=== PATIENT | male | born 1965 | race Caucasian/White ===

== ENCOUNTER 2016-04-03 07:34 | Emergency (ER) | payer BC ==
[2016-04-03] MEDS ORDERED: diphenhydrAMINE INJ 50MG/ML VIAL (J1200) As Ordered ONE (07:51)
[2016-04-03] MEDS ORDERED: METOCLOPRAMIDE INJ 10MG/2ML VIAL (J2765) As Ordered ONE (07:51)
[2016-04-03] MEDS ORDERED: ONDANSETRON 4MG/2ML VIAL (J2405) As Ordered ONE (07:58)
[2016-04-03 08:00] LABS: BASO % 0.4 % (0.0-1.0); EOS # 0.2 K/mm3 (0.0-0.50); EOS % 2.1 % (0.0-3.0); LARGE UNSTAINED CELL # 0.3 K/mm3 (0.0-0.4); LARGE UNSTAINED CELL % 3.5 % (0.0-4.0); LYMPH # 1.7 K/mm3 (1.5-4.5); LYMPH % 23.6 % (24.0-44.0); MEAN CORPUSCULAR HEMOGLOBIN 31.3 pg (27.0-33.0); MEAN CORPUSCULAR HGB CONC 34.9 g/dl (32.0-36.5); MEAN CORPUSCULAR VOLUME 89.7 fl (80.0-96.0); MONO # 0.4 K/mm3 (0.0-0.8); MONO % 5.4 % (0.0-5.0); NEUTROPHILS # 4.6 K/mm3 (1.8-7.7); NEUTROPHILS % 65.1 % (36.0-66.0); PLATELET COUNT, AUTOMATED 277 k/mm3 (150-450); RED CELL DISTRIBUTION WIDTH 12.8 % (11.5-14.5); WHITE BLOOD COUNT 7.1 K/mm3 (4.0-10.0)
[2016-04-03 08:21] LABS: ANION GAP 8 MEQ/L (8-16); BLOOD UREA NITROGEN 15 MG/DL (7-18); CALCIUM LEVEL 8.7 MG/DL (8.5-10.1); CARBON DIOXIDE LEVEL 31 MEQ/L (21-32); CHLORIDE LEVEL 104 MEQ/L (98-107); CREATININE FOR GFR 0.85 MG/DL (0.70-1.30); GLOMERULAR FILTRATION RATE > 60.0 (>56); GLUCOSE, FASTING 140 MG/DL (70-105); POTASSIUM SERUM 3.5 MEQ/L (3.5-5.1); SODIUM LEVEL 143 MEQ/L (136-145)
--- NOTE | 2016-04-03 08:27 | REP ---
CT brain without contrast 04/03/2016 Indication: Headache and vomiting Ventricles are of normal size and configuration. There is no intracranial hemorrhage or extra-axial fluid collection. There is no midline shift or mass effect. The skull is without fracture. Probable skin tag noted within the left frontal scalp. Visualized portions of paranasal sinuses and mastoid sinuses are clear Impression: no acute intracranial pathology or hemorrhage Signed by Jenni Brink MD 04/03/2016 08:18 A
[2016-04-03] MEDS ORDERED: MORPHINE 4 MG/ML 1ML SYRINGE As Ordered ONE (09:00)
--- NOTE | 2016-04-03 12:03 | REP ---
MRA BRAIN WITHOUT CONTRAST: HISTORY: Headache. 3D [id number] MR angiography was performed at the level of the [place]. There is no aneurysm, arteriovenous malformation or atherosclerotic lesion. The major intracranial vessels are patent. The left vertebral artery is dominant. IMPRESSION: Normal MRA brain. Signed by Severo Alex MD 04/03/2016 12:06 P
--- NOTE | 2016-04-03 13:10 | EDDOCDS ---
Physician Documentation [facility] Name: Brandon Lr Age: 50 yrs Sex: Male : 1965 Arrival Date: 04/03/2016 Time: 07:34 Bed 5 Private MD: Disposition: 04/03/16 12:58 Discharged to Home/Self Care. Impression: Headache. - Condition is Stable. - Discharge Instructions: Migraine Headache, Migraine Headache, Jljv-[id number], General Headache Without Cause, Wxoo-[id number]. - Medication Reconciliation, Local Pharmacy Hours form. - Follow up: Mireille Bar; When: Call to arrange an appointment. - Problem is an acute exacerbation. - Symptoms have improved. Historical: - Allergies: PENICILLINS (Hives); - Home Meds: 1. Prilosec 20 mg Oral cpDR 1 cap once daily (Last dose: 04/03/2016 06:00) 2. multivitamin Oral tab 1 tablet daily (Last dose: 04/03/2016 06:00) - PMHx: GERD; - PSHx: Back Surgery; Testicular Biopsy; - Social history: No barriers to communication noted, The patient speaks fluent Kyrgyz, Smoking status: Patient states was never smoker of tobacco. - Family history: Not pertinent. - : The pt / caregiver states he / she is not on anticoagulants. Home medication list is obtained from. - Exposure Risk Screening:: None identified. Vital Signs: 04/03 07:46 BP 179 / 107; Pulse 66; Resp 20; Temp 96.0; Pulse Ox 96% ; jlf 07:59 Pulse 88 MON; Pulse Ox 98% ; pml 07:59 BP 184 / 104 (auto/); pml 08:14 Pulse 62 MON; Pulse Ox 93% ; pml 08:14 BP 152 / 91 (auto/); pml 08:29 Pulse 64 MON; Pulse Ox 98% ; pml 08:29 BP 167 / 101 (auto/); pml 08:44 Pulse 64 MON; Pulse Ox 99% ; pml 08:44 BP 175 / 104 (auto/); pml 08:59 Pulse 58 MON; Pulse Ox 99% ; pml 08:59 BP 159 / 97 (auto/); pml 09:14 Pulse 56 MON; Pulse Ox 94% ; pml 09:14 BP 156 / 93 (auto/); pml 09:15 Pain 1/10; pml 09:48 Weight 70.31 kg / 155.01 lbs; Height 5 ft. 3 in. (160.02 cm); jlf 13:07 BP 123 / 96; Pulse 66; Resp 18; Temp 97.4; Pulse Ox 98% on R/A; Pain 1/10; pml 09:48 Body Mass Index 27.46 (70.31 kg, 160.02 cm) jlf MDM: 07:45 IV Saline Lock ordered. sd1 07:45 Metoclopramide 10 mg IV at 40 mg/hr once over 15 mins ordered. sd1 07:45 diphenhydrAMINE 25 mg IVP once ordered. sd1 07:45 NS 0.9% 1000 ml IV at bolus once ordered. sd1 07:46 CBC with Diff Ordered. EDMS 07:46 MED Profile Ordered. EDMS 07:46 CT Head Without Contrast Ordered. EDMS 07:58 Ondansetron 4 mg IVP once ordered. sd1 08:00 Financial registration complete. mm15 08:31 CBC with Diff Reviewed. sd1 08:31 MED Profile Reviewed. sd1 08:46 [facility] [place] Payment Agreement was scanned into [employer] and attached to record. lg 08:58 MRI Screening Tool - Place on chart, inform RN ordered. sd1 08:58 morphine 4 mg IVP every 15 minutes; Document pain score/vitals after each dose (Hold if sd1 SBP < 90mmHg) x2 ordered. 08:59 -MRA-Brain without contrast Ordered. EDMS 08:59 -MRI-Brain without Ordered. EDMS 09:05 MRI Screening Tool - Place on chart, inform RN complete. lbd Administered Medications: 07:59 Drug: NS 0.9% 1000 ml [sodium chloride 0.9 % injection solution] Route: IV; Rate: pml bolus; Site: left antecubital; 09:15 Follow up: IV Status: Completed infusion; IV Intake: 1000ml pml 08:00 Drug: Metoclopramide 10 mg [metoclopramide 5 mg/mL injection solution] Route: IV; Rate: pml 40 mg/hr; Infused Over: 15 mins; Site: left antecubital; 08:00 Drug: diphenhydrAMINE 25 mg [diphenhydramine 50 mg/mL injection solution (0.5 mL)] pml Route: IVP; Site: left antecubital; 08:00 Drug: Ondansetron 4 mg [ondansetron HCl 2 mg/mL intravenous solution (2 mL)] Route: pml IVP; Site: left antecubital; 09:09 Drug: morphine 4 mg [morphine 4 mg/mL intravenous cartridge (1 mL)] Route: IVP; Site: pml left antecubital; 09:15 Follow up: Pain 03/31 Adult; Response: Pain is decreased pml 13:07 Follow up: Response: Confirmed pt not driving. pml Signatures: Dispatcher [employer] EDMS Dannielle Gooden MD MD sd1 Delma Peñaloza, Hotel Receptionist Unit lbd Christen Saxena, Reg Reg lg Chelsea Espinoza RN RN jc4 Angie Salmeron RN RN pml Phylicia Cardoso mm15 The chart was reviewed and I authenticate all verbal orders and agree with the evaluation and treatment provided.Corrections: (The following items were deleted from the chart) 07:47 07:40 Allergies: PENICILLINS (Unknown); jcDeng jc4 Attachments: 08:46 [facility] Payment Agreement lg MTDD
--- NOTE | 2016-04-03 13:10 | EDDOCDS ---
Nurse's Notes [facility] Name: Brandon Lr Age: 50 yrs Sex: Male : 1965 Arrival Date: 04/03/2016 Time: 07:34 Bed 5 Private MD: Diagnosis: Headache Presentation: 04/03 07:38 Presenting complaint: EMS states: that patient came into work complaining of a jc4 headache. Took dose of Excedrin. Vomited x 1, patient was martinez and diaphoretic. Hypertensive. Suicide/Homicide risk assessment- the patient denies having any suicidal and/or homicidal ideations and does not present with any other emotional, behavioral or mental health complaints. Status: Patient is not a nutritional services host or dependent. Transition of care: patient was not received from another setting of care. Care prior to arrival: See EMS report. Saline lock initiated. Glucose check. 124 mg/dl. 07:38 Method Of Arrival: Ambulance jc4 07:46 This patient has no additional risk factors. Adult Sepsis Screening: The patient does jc4 not have new or worsening altered mentation. Patient's respiratory rate is less than 22. Systolic blood pressure is greater than 100. Patient has a qSOFA score of 0- Negative Sepsis Screen. 07:46 Acuity: LISA Level 2 jc4 07:47 Care prior to arrival: Medications administered prior to arrival: Zofran 4 mg IV. jc4 Triage Assessment: 08:00 Headache History: This patient does not have a history of previous headaches. General: pml Appears uncomfortable, Behavior is appropriate for age, cooperative. Pain: Location: headache Pain currently is 10 out of 10 on a pain scale. Pain began suddenly 1 hour ago Also complains of nausea, photophobia, vomiting, clammy. HIV screening NA for this visit Offered previously. The patient is triaged at the bedside. See Assessment in Nurses Notes section of ED record. Neurological: Level of Consciousness is awake, alert, Oriented to person, place, time. Cardiovascular: Capillary refill < 3 seconds Rhythm is sinus rhythm No ectopy. Respiratory: Airway is patent Respiratory effort is even, unlabored, Respiratory pattern is regular, symmetrical. GI: Abdomen is flat, non- distended Pt is actively vomiting bile, Reports nausea. Derm: Skin is clammy, Skin is pale. Historical: - Allergies: PENICILLINS (Hives); - Home Meds: 1. Prilosec 20 mg Oral cpDR 1 cap once daily (Last dose: 04/03/2016 06:00) 2. multivitamin Oral tab 1 tablet daily (Last dose: 04/03/2016 06:00) - PMHx: GERD; - PSHx: Back Surgery; Testicular Biopsy; - Social history: No barriers to communication noted, The patient speaks fluent Latvian, Smoking status: Patient states was never smoker of tobacco. - Family history: Not pertinent. - : The pt / caregiver states he / she is not on anticoagulants. Home medication list is obtained from. - Exposure Risk Screening:: None identified. Screenin:02 Screening information is obtained from the patient. Fall risk: No risks identified. pml Assistance ADL's: requires no assistance with activities of daily living. Abuse/DV Screen: The patient / caregiver reports he/she is: not in a situation that causes fear, pain or injury. Nutritional screening: No deficits noted. Advance Directives: Currently, there is no health care proxy. home support is adequate. Assessment: 08:02 General: see triage note. pml 08:11 GI: Reports nausea is improved, headache persists, remains photophobic. sinus rhythm on pml monitor. 08:25 Reassessment: Patient states feeling better. General: Behavior is drowsy. Neurological: pml Level of Consciousness is awake, alert, Oriented to person, place, time. Respiratory: Airway is patent Respiratory effort is even, unlabored. Derm: Skin is pink, warm & dry. 09:25 General: Appears well nourished, well groomed, Behavior is appropriate for age, pml cooperative. Pain: Location: headache Pain currently is 4 out of 10 on a pain scale. Neurological: Level of Consciousness is awake, alert, Oriented to person, place, time, Reports photophobia. Cardiovascular: Capillary refill < 3 seconds Rhythm is sinus rhythm No ectopy. Derm: Skin is pink, warm & dry. 10:00 Adult Sepsis Screening: The patient does not have new or worsening altered mentation. pml Patient's respiratory rate is less than 22. Systolic blood pressure is greater than 100. Patient has a qSOFA score of 0- Negative Sepsis Screen. 10:47 General: pt to MRI. pml 11:52 General: Appears in no apparent distress, Behavior is appropriate for age, cooperative. pml Pain: Denies pain. Neurological: Level of Consciousness is awake, alert, Oriented to person, place, time. Cardiovascular: Capillary refill < 3 seconds. Respiratory: Airway is patent Respiratory effort is even, unlabored. Derm: Skin is pink, warm & dry. 12:00 Adult Sepsis Screening: The patient does not have new or worsening altered mentation. pml Patient's respiratory rate is less than 22. Systolic blood pressure is greater than 100. Patient has a qSOFA score of 0- Negative Sepsis Screen. 13:06 General: Appears in no apparent distress, comfortable, Behavior is appropriate for age, pml cooperative. Pain: Location: headache Pain currently is 1 out of 10 on a pain scale. Neurological: Level of Consciousness is awake, alert, Oriented to person, place, time. Cardiovascular: Capillary refill < 3 seconds. Respiratory: Airway is patent Respiratory effort is even, unlabored. Derm: Skin is pink, warm & dry. Vital Signs: 07:46 BP 179 / 107; Pulse 66; Resp 20; Temp 96.0; Pulse Ox 96% ; jlf 07:59 Pulse 88 MON; Pulse Ox 98% ; pml 07:59 BP 184 / 104 (auto/); pml 08:14 Pulse 62 MON; Pulse Ox 93% ; pml 08:14 BP 152 / 91 (auto/); pml 08:29 Pulse 64 MON; Pulse Ox 98% ; pml 08:29 BP 167 / 101 (auto/); pml 08:44 Pulse 64 MON; Pulse Ox 99% ; pml 08:44 BP 175 / 104 (auto/); pml 08:59 Pulse 58 MON; Pulse Ox 99% ; pml 08:59 BP 159 / 97 (auto/); pml 09:14 Pulse 56 MON; Pulse Ox 94% ; pml 09:14 BP 156 / 93 (auto/); pml 09:15 Pain 1; pml 09:48 Weight 70.31 kg; Height 5 ft. 3 in. (160.02 cm); jlf 13:07 BP 123 / 96; Pulse 66; Resp 18; Temp 97.4; Pulse Ox 98% on R/A; Pain 03/31; pml 09:48 Body Mass Index 27.46 (70.31 kg, 160.02 cm) [facility] Vitals: 08:00 Log In Time N/A - ambulance arrival. [facility] ED Course: 07:35 Patient visited by Delma Peñaloza, Cold Patcher. lbd 07:35 Patient moved to Waiting lbd 07:36 Dannielle Gooden MD is Attending Physician. sd1 07:36 Patient visited by Dannielle Gooden MD. sd1 07:36 Patient moved to 5 lbd 07:46 Patient visited by Judit Cardoza PCA. jlf 07:47 Patient visited by Judit Cardoza PCA. jlf 07:47 Triage Initiated jc4 08:02 Patient visited by Angie Salmeron RN. pml 08:02 The patient / caregiver is instructed regarding the plan of care and ED course. Patient pml has correct armband on for positive identification. Placed in gown. Bed in low position. Call light in reach. Side rails up X2. panel monitor on. Pulse ox on. NIBP on. 08:02 Maintain field IV. Dressing intact. Good blood return noted. Site clean & dry. Gauge & pml site: 18g left AC. 08:11 Patient visited by Angie Salmeron RN. pml 08:26 Patient visited by Angie Salmeron,JULIET. pml 08:46 Patient name changed from Brandon\Herman\K\S\Rice\S\ to Brandon\S\Tomás\S\Rice. EDMS 08:46 [facility] Payment Agreement was scanned into [employer] and attached to record. lg 08:53 Angie Salmeron,JULIET is Primary Nurse. jc4 09:10 CT Head Without Contrast Returned. EDMS 09:17 Patient visited by Judit Cardoza PCA. jlf 09:25 Patient visited by Angie Salmeron RN. pml 09:56 Patient visited by Judit Cardoza PCA. jlf 10:43 Patient moved to MRI jlf 11:51 Patient moved to 5 pml 11:52 Patient visited by Angie Salmeron,JULIET. pml 12:11 -MRA-Brain without contrast Returned. EDMS 12:55 Patient visited by Judit Cardoza PCA. jlf 12:57 Mireille Bar is Referral Physician. sd1 13:07 Discontinued lock intact, bleeding controlled, pressure dressing applied, No pml redness/swelling at site. No procedures done that require assistance. Administered Medications: 07:59 Drug: NS 0.9% 1000 ml [sodium chloride 0.9 % injection solution] Route: IV; Rate: pml bolus; Site: left antecubital; 09:15 Follow up: IV Status: Completed infusion; IV Intake: 1000ml pml 08:00 Drug: Metoclopramide 10 mg [metoclopramide 5 mg/mL injection solution] Route: IV; Rate: pml 40 mg/hr; Infused Over: 15 mins; Site: left antecubital; 08:00 Drug: diphenhydrAMINE 25 mg [diphenhydramine 50 mg/mL injection solution (0.5 mL)] pml Route: IVP; Site: left antecubital; 08:00 Drug: Ondansetron 4 mg [ondansetron HCl 2 mg/mL intravenous solution (2 mL)] Route: pml IVP; Site: left antecubital; 09:09 Drug: morphine 4 mg [morphine 4 mg/mL intravenous cartridge (1 mL)] Route: IVP; Site: pml left antecubital; 09:15 Follow up: Pain 03/31 Adult; Response: Pain is decreased pml 13:07 Follow up: Response: Confirmed pt not driving. pml Intake: 09:15 IV: 1000.00ml; Total: 1000.00ml. pml Order Results: Lab Order: CBC with Diff; SPEC'M 04/03/16 07:49 Test: WHITE BLOOD COUNT; Value: 7.1; Range: 4.0-10.0; Units: K/mm3; Status: F Test: RED BLOOD COUNT; Value: 4.74; Range: 4.30-6.10; Units: M/mm3; Status: F Test: HEMOGLOBIN; Value: 14.9; Range: 14.0-18.0; Units: g/dl; Status: F Test: HEMATOCRIT; Value: 42.6; Range: 42.0-52.0; Units: %; Status: F Test: MEAN CORPUSCULAR VOLUME; Value: 89.7; Range: 80.0-96.0; Units: fl; Status: F Test: MEAN CORPUSCULAR HEMOGLOBIN; Value: 31.3; Range: 27.0-33.0; Units: pg; Status: F Test: MEAN CORPUSCULAR HGB CONC; Value: 34.9; Range: 32.0-36.5; Units: g/dl; Status: F Test: RED CELL DISTRIBUTION WIDTH; Value: 12.8; Range: 11.5-14.5; Units: %; Status: F Test: PLATELET COUNT, AUTOMATED; Value: 277; Range: 150-450; Units: k/mm3; Status: F Test: NEUTROPHILS %; Value: 65.1; Range: 36.0-66.0; Units: %; Status: F Test: LYMPH %; Value: 23.6; Range: 24.0-44.0; Abnormal: Below low normal; Units: %; Status: F Test: MONO %; Value: 5.4; Range: 0.0-5.0; Abnormal: Above high normal; Units: %; Status: F Test: EOS %; Value: 2.1; Range: 0.0-3.0; Units: %; Status: F Test: BASO %; Value: 0.4; Range: 0.0-1.0; Units: %; Status: F Test: LARGE UNSTAINED CELL %; Value: 3.5; Range: 0.0-4.0; Units: %; Status: F Test: NEUTROPHILS #; Value: 4.6; Range: 1.8-7.7; Units: K/mm3; Status: F Test: LYMPH #; Value: 1.7; Range: 1.5-4.5; Units: K/mm3; Status: F Test: MONO #; Value: 0.4; Range: 0.0-0.8; Units: K/mm3; Status: F Test: EOS #; Value: 0.2; Range: 0.0-0.50; Units: K/mm3; Status: F Test: BASO #; Value: 0.0; Range: 0.0-0.2; Units: K/mm3; Status: F Test: LARGE UNSTAINED CELL #; Value: 0.3; Range: 0.0-0.4; Units: K/mm3; Status: F Lab Order: MED Profile; SPEC'M 04/03/16 07:49 Test: GLUCOSE, FASTING; Value: 140; Range: 70-105; Abnormal: Above high normal; Units: MG/DL; Status: F Test: BLOOD UREA NITROGEN; Value: 15; Range: 7-18; Units: MG/DL; Status: F Test: CREATININE FOR GFR; Value: 0.85; Range: 0.70-1.30; Units: MG/DL; Status: F Test: GLOMERULAR FILTRATION RATE; Value: > 60.0; Range: >56; Status: F Test: SODIUM LEVEL; Value: 143; Range: 136-145; Units: MEQ/L; Status: F Test: POTASSIUM SERUM; Value: 3.5; Range: 3.5-5.1; Units: MEQ/L; Status: F Test: CHLORIDE LEVEL; Value: 104; Range: 98-107; Units: MEQ/L; Status: F Test: CARBON DIOXIDE LEVEL; Value: 31; Range: 21-32; Units: MEQ/L; Status: F Test: ANION GAP; Value: 8; Range: 8-16; Units: MEQ/L; Status: F Test: CALCIUM LEVEL; Value: 8.7; Range: 8.5-10.1; Units: MG/DL; Status: F Test Note: ; Units are mL/min/1.73 m2 Chronic Kidney Disease Staging per NKF: Stage I & II GFR >=60 Normal to Mildly Decreased Stage III GFR 30-59 Moderately Decreased Stage IV GFR 15-29 Severely Decreased Stage V GFR <15 Very Little GFR Left ESRD GFR <15 on PHYSICAL THERAPIST CLINIC DIRECTOR Radiology Order: CT Head Without Contrast Test: CT Head Without Contrast REASON FOR EXAMINATION: HEADACHE VOMITING; CT brain without contrast 04/03/2016; ; Indication: Headache and vomiting; ; Ventricles are of normal size and configuration. There is no intracranial; hemorrhage or extra-axial fluid collection. There is no midline shift or mass; effect.; ; The skull is without fracture. Probable skin tag noted within the left frontal; scalp.; ; Visualized portions of paranasal sinuses and mastoid sinuses are clear; ; Impression: no acute intracranial pathology or hemorrhage; ; ; ; ; Signed by; Jenni Brink MD 04/03/2016 08:18 A; Radiology Order: -MRA-Brain without contrast Test: -MRA-Brain without contrast REASON FOR EXAMINATION: headache vomiting; MRA BRAIN WITHOUT CONTRAST:; ; HISTORY: Headache.; ; 3D [id number] MR angiography was performed at the level of the [place]. There is no aneurysm, arteriovenous malformation or atherosclerotic; lesion. The major intracranial vessels are patent. The left vertebral artery is; dominant.; ; IMPRESSION:; ; Normal MRA brain.; ; ; Signed by; Severo Alex MD 04/03/2016 12:06 P; Outcome: 12:58 Discharge ordered by Provider. sd1 13:07 Discharge Assessment: Patient awake, alert and oriented x 3. No cognitive and/or pml functional deficits noted. Patient verbalized understanding of disposition instructions. patient administered narcotics - yes. Pt provided with safe discharge. The following High Risk Discharge criteria are identified: None. Discharged to home ambulatory, with significant other. Condition: good Condition: stable. Discharge instructions given to patient, Instructed on discharge instructions, follow up and referral plans. Demonstrated understanding of instructions, Pt was receptive of discharge instructions/ teaching. No special radiology studies were completed. Property sent home with patient. 13:09 Patient left the ED. pml Signatures: Dispatcher [employer] EDMS Dannielle Gooden MD MD sd1 Delma Peñaloza, Cold Patcher Unit lbd Christen Saxena, Chelsea De Santiago lg RN RN jc4 Angie SalmeronRN RN Judit Peña, STEVEN GEOPHYSICIST jlf Corrections: (The following items were deleted from the chart) 07:47 07:40 Allergies: PENICILLINS (Unknown); jc4 jc4 MTDD
--- NOTE | 2016-04-03 20:26 | REP ---
MRI brain without contrast 04/03/2016 Indication: Headache and vomiting, nausea and dizziness Technique: Sagittal and axial images were obtained of the brain in multiple pulse sequences Comparison: CT brain without contrast 04/03/2016 Findings: The ventricles are of normal size and configuration. There is no intracranial hemorrhage or extra-axial fluid collection. There are no abnormal T2 / FLAIR white matter hyperintense foci. Diffusion-weighted images are unremarkable without evidence of recent ischemia. There is no evidence of intracranial hemorrhage or extra-axial fluid collection. Seventh and eighth cranial nerves are symmetric in appearance in the internal auditory canals. Midline structures to include corpus callosum and brainstem are within normal limits. Small amount of mucoperiosteal thickening is present within the right fronto- ethmoidal recess. Impression: No acute intracranial pathology or hemorrhage Signed by Jenni Brink MD 04/03/2016 08:17 P
--- NOTE | 2016-04-05 14:10 | EDDOCDS ---
Physician Documentation [facility] Name: Brandon Lr Age: 50 yrs Sex: Male : 1965 Arrival Date: 04/03/2016 Time: 07:34 Bed 5 Private MD: Disposition: 04/03/16 12:58 Discharged to Home/Self Care. Impression: Headache. - Condition is Stable. - Discharge Instructions: Migraine Headache, Migraine Headache, [id number], General Headache Without Cause, [id number]. - Medication Reconciliation, Local Pharmacy Hours form. - Follow up: Mireille Bar; When: Call to arrange an appointment. - Problem is an acute exacerbation. - Symptoms have improved. Historical: - Allergies: PENICILLINS (Hives); - Home Meds: 1. Prilosec 20 mg Oral cpDR 1 cap once daily (Last dose: 04/03/2016 06:00) 2. multivitamin Oral tab 1 tablet daily (Last dose: 04/03/2016 06:00) - PMHx: GERD; - PSHx: Back Surgery; Testicular Biopsy; - Social history: No barriers to communication noted, The patient speaks fluent Macedonian, Smoking status: Patient states was never smoker of tobacco. - Family history: Not pertinent. - : The pt / caregiver states he / she is not on anticoagulants. Home medication list is obtained from. - Exposure Risk Screening:: None identified. Vital Signs: 04/03 07:46 BP 179 / 107; Pulse 66; Resp 20; Temp 96.0; Pulse Ox 96% ; jlf 07:59 Pulse 88 MON; Pulse Ox 98% ; pml 07:59 BP 184 / 104 (auto/); pml 08:14 Pulse 62 MON; Pulse Ox 93% ; pml 08:14 BP 152 / 91 (auto/); pml 08:29 Pulse 64 MON; Pulse Ox 98% ; pml 08:29 BP 167 / 101 (auto/); pml 08:44 Pulse 64 MON; Pulse Ox 99% ; pml 08:44 BP 175 / 104 (auto/); pml 08:59 Pulse 58 MON; Pulse Ox 99% ; pml 08:59 BP 159 / 97 (auto/); pml 09:14 Pulse 56 MON; Pulse Ox 94% ; pml 09:14 BP 156 / 93 (auto/); pml 09:15 Pain 1/10; pml 09:48 Weight 70.31 kg / 155.01 lbs; Height 5 ft. 3 in. (160.02 cm); jlf 13:07 BP 123 / 96; Pulse 66; Resp 18; Temp 97.4; Pulse Ox 98% on R/A; Pain 1/10; pml 09:48 Body Mass Index 27.46 (70.31 kg, 160.02 cm) jl MDM: 07:45 IV Saline Lock ordered. sd1 07:45 Metoclopramide 10 mg IV at 40 mg/hr once over 15 mins ordered. sd1 07:45 diphenhydrAMINE 25 mg IVP once ordered. sd1 07:45 NS 0.9% 1000 ml IV at bolus once ordered. sd1 07:46 CBC with Diff Ordered. EDMS 07:46 MED Profile Ordered. EDMS 07:46 CT Head Without Contrast Ordered. EDMS 07:58 Ondansetron 4 mg IVP once ordered. sd1 08:00 Financial registration complete. mm15 08:31 CBC with Diff Reviewed. sd1 08:31 MED Profile Reviewed. sd1 08:46 [facility] [place] Payment Agreement was scanned into DigitalMR and attached to record. lg 08:58 MRI Screening Tool - Place on chart, inform RN ordered. sd1 08:58 morphine 4 mg IVP every 15 minutes; Document pain score/vitals after each dose (Hold if sd1 SBP < 90mmHg) x2 ordered. 08:59 -MRA-Brain without contrast Ordered. EDMS 08:59 -MRI-Brain without Ordered. EDMS 09:05 MRI Screening Tool - Place on chart, inform RN complete. lbd 13:38 PCR was scanned into DigitalMR and attached to record. gb 14:55 T-Sheet-- Draft Copy was scanned into DigitalMR and attached to record. gb 04/04 09:32 Rhythm Strip was scanned into DigitalMR and attached to record. gb Administered Medications: 04/03 07:59 Drug: NS 0.9% 1000 ml [sodium chloride 0.9 % injection solution] Route: IV; Rate: pml bolus; Site: left antecubital; 09:15 Follow up: IV Status: Completed infusion; IV Intake: 1000ml pml 08:00 Drug: Metoclopramide 10 mg [metoclopramide 5 mg/mL injection solution] Route: IV; Rate: pml 40 mg/hr; Infused Over: 15 mins; Site: left antecubital; 08:00 Drug: diphenhydrAMINE 25 mg [diphenhydramine 50 mg/mL injection solution (0.5 mL)] [facility] Route: IVP; Site: left antecubital; 08:00 Drug: Ondansetron 4 mg [ondansetron HCl 2 mg/mL intravenous solution (2 mL)] Route: pml IVP; Site: left antecubital; 09:09 Drug: morphine 4 mg [morphine 4 mg/mL intravenous cartridge (1 mL)] Route: IVP; Site: pml left antecubital; 09:15 Follow up: Pain 03/31 Adult; Response: Pain is decreased pml 13:07 Follow up: Response: Confirmed pt not driving. pml Signatures: Dispatcher Med[employer] EDDannielle Pike MD MD sd1 Delma Peñaloza, Skiing Teacher Unit lbd Darlene Hawthorne, Reg Reg gb Christen Saxena, Reg Reg lg Chelsea Espinoza RN RN jc4 Angie Salmeron RN RN pml McGrath, Marlynn mm15 The chart was reviewed and I authenticate all verbal orders and agree with the evaluation and treatment provided.Corrections: (The following items were deleted from the chart) 07:47 07:40 Allergies: PENICILLINS (Unknown); jc4 jc4 Attachments: 08:46 [facility] Payment Agreement lg 14:55 T-Sheet-- Draft Copy gb Chart Complete MTDD
--- NOTE | 2016-04-05 14:10 | EDDOCDS ---
Nurse's Notes [facility] Name: Brandon Lr Age: 50 yrs Sex: Male : 1965 Arrival Date: 04/03/2016 Time: 07:34 Bed 5 Private MD: Diagnosis: Headache Presentation: 04/03 07:38 Presenting complaint: EMS states: that patient came into work complaining of a jc4 headache. Took dose of Excedrin. Vomited x 1, patient was martinez and diaphoretic. Hypertensive. Suicide/Homicide risk assessment- the patient denies having any suicidal and/or homicidal ideations and does not present with any other emotional, behavioral or mental health complaints. 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 Transition of care: patient was not received from another setting of care. Care prior to arrival: See EMS report. Saline lock initiated. Glucose check. 124 mg/dl. 07:38 Method Of Arrival: Ambulance jc4 07:46 This patient has no additional risk factors. Adult Sepsis Screening: The patient does jc4 not have new or worsening altered mentation. Patient's respiratory rate is less than 22. Systolic blood pressure is greater than 100. Patient has a qSOFA score of 0- Negative Sepsis Screen. 07:46 Acuity: LISA Level 2 jc4 07:47 Care prior to arrival: Medications administered prior to arrival: Zofran 4 mg IV. jc4 Triage Assessment: 08:00 Headache History: This patient does not have a history of previous headaches. General: pml Appears uncomfortable, Behavior is appropriate for age, cooperative. Pain: Location: headache Pain currently is 10 out of 10 on a pain scale. Pain began suddenly 1 hour ago Also complains of nausea, photophobia, vomiting, clammy. HIV screening NA for this visit Offered previously. The patient is triaged at the bedside. See Assessment in Nurses Notes section of ED record. Neurological: Level of Consciousness is awake, alert, Oriented to person, place, time. Cardiovascular: Capillary refill < 3 seconds Rhythm is sinus rhythm No ectopy. Respiratory: Airway is patent Respiratory effort is even, unlabored, Respiratory pattern is regular, symmetrical. GI: Abdomen is flat, non- distended Pt is actively vomiting bile, Reports nausea. Derm: Skin is clammy, Skin is pale. Historical: - Allergies: PENICILLINS (Hives); - Home Meds: 1. Prilosec 20 mg Oral cpDR 1 cap once daily (Last dose: 04/03/2016 06:00) 2. multivitamin Oral tab 1 tablet daily (Last dose: 04/03/2016 06:00) - PMHx: GERD; - PSHx: Back Surgery; Testicular Biopsy; - Social history: No barriers to communication noted, The patient speaks fluent Albanian, Smoking status: Patient states was never smoker of tobacco. - Family history: Not pertinent. - : The pt / caregiver states he / she is not on anticoagulants. Home medication list is obtained from. - Exposure Risk Screening:: None identified. Screenin:02 Screening information is obtained from the patient. Fall risk: No risks identified. pml Assistance ADL's: requires no assistance with activities of daily living. Abuse/DV Screen: The patient / caregiver reports he/she is: not in a situation that causes fear, pain or injury. Nutritional screening: No deficits noted. Advance Directives: Currently, there is no health care proxy. home support is adequate. Assessment: 08:02 General: see triage note. pml 08:11 GI: Reports nausea is improved, headache persists, remains photophobic. sinus rhythm on pml monitor. 08:25 Reassessment: Patient states feeling better. General: Behavior is drowsy. Neurological: pml Level of Consciousness is awake, alert, Oriented to person, place, time. Respiratory: Airway is patent Respiratory effort is even, unlabored. Derm: Skin is pink, warm & dry. 09:25 General: Appears well nourished, well groomed, Behavior is appropriate for age, pml cooperative. Pain: Location: headache Pain currently is 4 out of 10 on a pain scale. Neurological: Level of Consciousness is awake, alert, Oriented to person, place, time, Reports photophobia. Cardiovascular: Capillary refill < 3 seconds Rhythm is sinus rhythm No ectopy. Derm: Skin is pink, warm & dry. 10:00 Adult Sepsis Screening: The patient does not have new or worsening altered mentation. pml Patient's respiratory rate is less than 22. Systolic blood pressure is greater than 100. Patient has a qSOFA score of 0- Negative Sepsis Screen. 10:47 General: pt to MRI. pml 11:52 General: Appears in no apparent distress, Behavior is appropriate for age, cooperative. pml Pain: Denies pain. Neurological: Level of Consciousness is awake, alert, Oriented to person, place, time. Cardiovascular: Capillary refill < 3 seconds. Respiratory: Airway is patent Respiratory effort is even, unlabored. Derm: Skin is pink, warm & dry. 12:00 Adult Sepsis Screening: The patient does not have new or worsening altered mentation. pml Patient's respiratory rate is less than 22. Systolic blood pressure is greater than 100. Patient has a qSOFA score of 0- Negative Sepsis Screen. 13:06 General: Appears in no apparent distress, comfortable, Behavior is appropriate for age, pml cooperative. Pain: Location: headache Pain currently is 1 out of 10 on a pain scale. Neurological: Level of Consciousness is awake, alert, Oriented to person, place, time. Cardiovascular: Capillary refill < 3 seconds. Respiratory: Airway is patent Respiratory effort is even, unlabored. Derm: Skin is pink, warm & dry. Vital Signs: 07:46 BP 179 / 107; Pulse 66; Resp 20; Temp 96.0; Pulse Ox 96% ; jlf 07:59 Pulse 88 MON; Pulse Ox 98% ; pml 07:59 BP 184 / 104 (auto/); pml 08:14 Pulse 62 MON; Pulse Ox 93% ; pml 08:14 BP 152 / 91 (auto/); pml 08:29 Pulse 64 MON; Pulse Ox 98% ; pml 08:29 BP 167 / 101 (auto/); pml 08:44 Pulse 64 MON; Pulse Ox 99% ; pml 08:44 BP 175 / 104 (auto/); pml 08:59 Pulse 58 MON; Pulse Ox 99% ; pml 08:59 BP 159 / 97 (auto/); pml 09:14 Pulse 56 MON; Pulse Ox 94% ; pml 09:14 BP 156 / 93 (auto/); pml 09:15 Pain 1; pml 09:48 Weight 70.31 kg; Height 5 ft. 3 in. (160.02 cm); jlf 13:07 BP 123 / 96; Pulse 66; Resp 18; Temp 97.4; Pulse Ox 98% on R/A; Pain 03/31; pml 09:48 Body Mass Index 27.46 (70.31 kg, 160.02 cm) [facility] Vitals: 08:00 Log In Time N/A - ambulance arrival. [facility] ED Course: 07:35 Patient visited by Delma Peñaloza, Attendant Arcade. lbd 07:35 Patient moved to Waiting lbd 07:36 Dannielle Gooden MD is Attending Physician. sd1 07:36 Patient visited by Dannielle Gooden MD. sd1 07:36 Patient moved to 5 lbd 07:46 Patient visited by Judit Cardoza PCA. jlf 07:47 Patient visited by Judit Cardoza PCA. jlf 07:47 Triage Initiated jc4 08:02 Patient visited by Angie Salmeron RN. pml 08:02 The patient / caregiver is instructed regarding the plan of care and ED course. Patient pml has correct armband on for positive identification. Placed in gown. Bed in low position. Call light in reach. Side rails up X2. child monitor on. Pulse ox on. NIBP on. 08:02 Maintain field IV. Dressing intact. Good blood return noted. Site clean & dry. Gauge & pml site: 18g left AC. 08:11 Patient visited by Angie Salmeron RN. pml 08:26 Patient visited by Angie Salmeron,JULIET. pml 08:46 Patient name changed from Brandon\S\K\S\Rice\S\ to Brandon\S\Tomás\S\Rice. EDMS 08:46 [facility] [place] Payment Agreement was scanned into Sleep.FM and attached to record. lg 08:53 Angie Salmeron,RN is Primary Nurse. jc4 09:10 CT Head Without Contrast Returned. EDMS 09:17 Patient visited by Judit Cardoza PCA. jlf 09:25 Patient visited by Angie Salmeron,JULIET. pml 09:56 Patient visited by Judit Cardoza PCA. jlf 10:43 Patient moved to MRI jlf 11:51 Patient moved to 5 pml 11:52 Patient visited by Angie Salmeron,JULIET. pml 12:11 -MRA-Brain without contrast Returned. EDMS 12:55 Patient visited by Judit Cardoza PCA. jlf 12:57 Mireille Bar is Referral Physician. sd1 13:07 Discontinued lock intact, bleeding controlled, pressure dressing applied, No pml redness/swelling at site. No procedures done that require assistance. 13:38 PCR was scanned into Sleep.FM and attached to record. gb 14:55 T-Sheet-- Draft Copy was scanned into Sleep.FM and attached to record. gb 21:02 -MRI-Brain without Returned. EDMS 04/04 09:32 Rhythm Strip was scanned into Sleep.FM and attached to record. gb Administered Medications: 04/03 07:59 Drug: NS 0.9% 1000 ml [sodium chloride 0.9 % injection solution] Route: IV; Rate: pml bolus; Site: left antecubital; 09:15 Follow up: IV Status: Completed infusion; IV Intake: 1000ml pml 08:00 Drug: Metoclopramide 10 mg [metoclopramide 5 mg/mL injection solution] Route: IV; Rate: pml 40 mg/hr; Infused Over: 15 mins; Site: left antecubital; 08:00 Drug: diphenhydrAMINE 25 mg [diphenhydramine 50 mg/mL injection solution (0.5 mL)] pml Route: IVP; Site: left antecubital; 08:00 Drug: Ondansetron 4 mg [ondansetron HCl 2 mg/mL intravenous solution (2 mL)] Route: pml IVP; Site: left antecubital; 09:09 Drug: morphine 4 mg [morphine 4 mg/mL intravenous cartridge (1 mL)] Route: IVP; Site: pml left antecubital; 09:15 Follow up: Pain / Adult; Response: Pain is decreased pml 13:07 Follow up: Response: Confirmed pt not driving. pml Attachments: 04/04 09:32 Rhythm Strip gb Intake: 04/03 09:15 IV: 1000.00ml; Total: 1000.00ml. pml Order Results: Lab Order: CBC with Diff; SPEC'M 04/03/16 07:49 Test: WHITE BLOOD COUNT; Value: 7.1; Range: 4.0-10.0; Units: K/mm3; Status: F Test: RED BLOOD COUNT; Value: 4.74; Range: 4.30-6.10; Units: M/mm3; Status: F Test: HEMOGLOBIN; Value: 14.9; Range: 14.0-18.0; Units: g/dl; Status: F Test: HEMATOCRIT; Value: 42.6; Range: 42.0-52.0; Units: %; Status: F Test: MEAN CORPUSCULAR VOLUME; Value: 89.7; Range: 80.0-96.0; Units: fl; Status: F Test: MEAN CORPUSCULAR HEMOGLOBIN; Value: 31.3; Range: 27.0-33.0; Units: pg; Status: F Test: MEAN CORPUSCULAR HGB CONC; Value: 34.9; Range: 32.0-36.5; Units: g/dl; Status: F Test: RED CELL DISTRIBUTION WIDTH; Value: 12.8; Range: 11.5-14.5; Units: %; Status: F Test: PLATELET COUNT, AUTOMATED; Value: 277; Range: 150-450; Units: k/mm3; Status: F Test: NEUTROPHILS %; Value: 65.1; Range: 36.0-66.0; Units: %; Status: F Test: LYMPH %; Value: 23.6; Range: 24.0-44.0; Abnormal: Below low normal; Units: %; Status: F Test: MONO %; Value: 5.4; Range: 0.0-5.0; Abnormal: Above high normal; Units: %; Status: F Test: EOS %; Value: 2.1; Range: 0.0-3.0; Units: %; Status: F Test: BASO %; Value: 0.4; Range: 0.0-1.0; Units: %; Status: F Test: LARGE UNSTAINED CELL %; Value: 3.5; Range: 0.0-4.0; Units: %; Status: F Test: NEUTROPHILS #; Value: 4.6; Range: 1.8-7.7; Units: K/mm3; Status: F Test: LYMPH #; Value: 1.7; Range: 1.5-4.5; Units: K/mm3; Status: F Test: MONO #; Value: 0.4; Range: 0.0-0.8; Units: K/mm3; Status: F Test: EOS #; Value: 0.2; Range: 0.0-0.50; Units: K/mm3; Status: F Test: BASO #; Value: 0.0; Range: 0.0-0.2; Units: K/mm3; Status: F Test: LARGE UNSTAINED CELL #; Value: 0.3; Range: 0.0-0.4; Units: K/mm3; Status: F Lab Order: MED ProfileTran BROWN 04/03/16 07:49 Test: GLUCOSE, FASTING; Value: 140; Range: 70-105; Abnormal: Above high normal; Units: MG/DL; Status: F Test: BLOOD UREA NITROGEN; Value: 15; Range: 7-18; Units: MG/DL; Status: F Test: CREATININE FOR GFR; Value: 0.85; Range: 0.70-1.30; Units: MG/DL; Status: F Test: GLOMERULAR FILTRATION RATE; Value: > 60.0; Range: >56; Status: F Test: SODIUM LEVEL; Value: 143; Range: 136-145; Units: MEQ/L; Status: F Test: POTASSIUM SERUM; Value: 3.5; Range: 3.5-5.1; Units: MEQ/L; Status: F Test: CHLORIDE LEVEL; Value: 104; Range: 98-107; Units: MEQ/L; Status: F Test: CARBON DIOXIDE LEVEL; Value: 31; Range: 21-32; Units: MEQ/L; Status: F Test: ANION GAP; Value: 8; Range: 8-16; Units: MEQ/L; Status: F Test: CALCIUM LEVEL; Value: 8.7; Range: 8.5-10.1; Units: MG/DL; Status: F Test Note: ; Units are mL/min/1.73 m2 Chronic Kidney Disease Staging per NKF: Stage I & II GFR >=60 Normal to Mildly Decreased Stage III GFR 30-59 Moderately Decreased Stage IV GFR 15-29 Severely Decreased Stage V GFR <15 Very Little GFR Left ESRD GFR <15 on MICROFILMING DOCUMENT PREPARER Radiology Order: CT Head Without Contrast Test: CT Head Without Contrast REASON FOR EXAMINATION: HEADACHE VOMITING; CT brain without contrast 04/03/2016; ; Indication: Headache and vomiting; ; Ventricles are of normal size and configuration. There is no intracranial; hemorrhage or extra-axial fluid collection. There is no midline shift or mass; effect.; ; The skull is without fracture. Probable skin tag noted within the left frontal; scalp.; ; Visualized portions of paranasal sinuses and mastoid sinuses are clear; ; Impression: no acute intracranial pathology or hemorrhage; ; ; ; ; Signed by; Jenni Brink MD 04/03/2016 08:18 A; Radiology Order: -MRA-Brain without contrast Test: -MRA-Brain without contrast REASON FOR EXAMINATION: headache vomiting; MRA BRAIN WITHOUT CONTRAST:; ; HISTORY: Headache.; ; 3D [id number] MR angiography was performed at the level of the ramona of; [place]. There is no aneurysm, arteriovenous malformation or atherosclerotic; lesion. The major intracranial vessels are patent. The left vertebral artery is; dominant.; ; IMPRESSION:; ; Normal MRA brain.; ; ; Signed by; Severo Alex MD 04/03/2016 12:06 P; Radiology Order: -MRI-Brain without Test: -MRI-Brain without REASON FOR EXAMINATION: headache vomiting; MRI brain without contrast 04/03/2016; ; Indication: Headache and vomiting, nausea and dizziness; ; Technique: Sagittal and axial images were obtained of the brain in multiple; pulse sequences; ; Comparison: CT brain without contrast 04/03/2016; ; Findings: The ventricles are of normal size and configuration. There is no; intracranial hemorrhage or extra-axial fluid collection. There are no abnormal; T2 / FLAIR white matter hyperintense foci. Diffusion-weighted images are; unremarkable without evidence of recent ischemia. There is no evidence of; intracranial hemorrhage or extra-axial fluid collection. Seventh and eighth; cranial nerves are symmetric in appearance in the internal auditory canals.; Midline structures to include corpus callosum and brainstem are within normal; limits.; ; Small amount of mucoperiosteal thickening is present within the right fronto-; ethmoidal recess.; ; Impression: No acute intracranial pathology or hemorrhage; ; ; Signed by; Jenni Brink MD 04/03/2016 08:17 P; Outcome: 12:58 Discharge ordered by Provider. sd1 13:07 Discharge Assessment: Patient awake, alert and oriented x 3. No cognitive and/or pml functional deficits noted. Patient verbalized understanding of disposition instructions. patient administered narcotics - yes. Pt provided with safe discharge. The following High Risk Discharge criteria are identified: None. Discharged to home ambulatory, with significant other. Condition: good Condition: stable. Discharge instructions given to patient, Instructed on discharge instructions, follow up and referral plans. Demonstrated understanding of instructions, Pt was receptive of discharge instructions/ teaching. No special radiology studies were completed. Property sent home with patient. 13:09 Patient left the ED. pml Signatures: Dispatcher Med[employer] EDWV Dannielle Gooden MD MD sd1 Delma Peñaloza, Attendant [employer] Unit lbd Darlene Hawthorne, Reg Reg gb Christen Saxena, Reg Reg lg Chelsea Espinoza RN RN jc4 Angie Salmeron,JULIET RN pml Judit Cardoza, METAL ROOFING MECHANIC METAL ROOFING MECHANIC jl Corrections: (The following items were deleted from the chart) 07:47 07:40 Allergies: PENICILLINS (Unknown); jc4 jc4 Chart Complete MTDD
--- NOTE | 2016-04-05 14:10 | EDDOCDS ---
Physician Documentation [facility] Name: Brandon Lr Age: 50 yrs Sex: Male : 1965 Arrival Date: 04/03/2016 Time: 07:34 Bed 5 Private MD: Disposition: 04/03/16 12:58 Discharged to Home/Self Care. Impression: Headache. - Condition is Stable. - Discharge Instructions: Migraine Headache, Migraine Headache, [id number], General Headache Without Cause, [id number]. - Medication Reconciliation, Local Pharmacy Hours form. - Follow up: Mireille Bar; When: Call to arrange an appointment. - Problem is an acute exacerbation. - Symptoms have improved. Historical: - Allergies: PENICILLINS (Hives); - Home Meds: 1. Prilosec 20 mg Oral cpDR 1 cap once daily (Last dose: 04/03/2016 06:00) 2. multivitamin Oral tab 1 tablet daily (Last dose: 04/03/2016 06:00) - PMHx: GERD; - PSHx: Back Surgery; Testicular Biopsy; - Social history: No barriers to communication noted, The patient speaks fluent [place], Smoking status: Patient states was never smoker of tobacco. - Family history: Not pertinent. - : The pt / caregiver states he / she is not on anticoagulants. Home medication list is obtained from. - Exposure Risk Screening:: None identified. Vital Signs: 04/03 07:46 BP 179 / 107; Pulse 66; Resp 20; Temp 96.0; Pulse Ox 96% ; jlf 07:59 Pulse 88 MON; Pulse Ox 98% ; pml 07:59 BP 184 / 104 (auto/); pml 08:14 Pulse 62 MON; Pulse Ox 93% ; pml 08:14 BP 152 / 91 (auto/); pml 08:29 Pulse 64 MON; Pulse Ox 98% ; pml 08:29 BP 167 / 101 (auto/); pml 08:44 Pulse 64 MON; Pulse Ox 99% ; pml 08:44 BP 175 / 104 (auto/); pml 08:59 Pulse 58 MON; Pulse Ox 99% ; pml 08:59 BP 159 / 97 (auto/); pml 09:14 Pulse 56 MON; Pulse Ox 94% ; pml 09:14 BP 156 / 93 (auto/); pml 09:15 Pain 1/10; pml 09:48 Weight 70.31 kg / 155.01 lbs; Height 5 ft. 3 in. (160.02 cm); jlf 13:07 BP 123 / 96; Pulse 66; Resp 18; Temp 97.4; Pulse Ox 98% on R/A; Pain 1/10; pml 09:48 Body Mass Index 27.46 (70.31 kg, 160.02 cm) jl MDM: 07:45 IV Saline Lock ordered. sd1 07:45 Metoclopramide 10 mg IV at 40 mg/hr once over 15 mins ordered. sd1 07:45 diphenhydrAMINE 25 mg IVP once ordered. sd1 07:45 NS 0.9% 1000 ml IV at bolus once ordered. sd1 07:46 CBC with Diff Ordered. EDMS 07:46 MED Profile Ordered. EDMS 07:46 CT Head Without Contrast Ordered. EDMS 07:58 Ondansetron 4 mg IVP once ordered. sd1 08:00 Financial registration complete. mm15 08:31 CBC with Diff Reviewed. sd1 08:31 MED Profile Reviewed. sd1 08:46 [facility] [place] Payment Agreement was scanned into [employer] and attached to record. lg 08:58 MRI Screening Tool - Place on chart, inform RN ordered. sd1 08:58 morphine 4 mg IVP every 15 minutes; Document pain score/vitals after each dose (Hold if sd1 SBP < 90mmHg) x2 ordered. 08:59 -MRA-Brain without contrast Ordered. EDMS 08:59 -MRI-Brain without Ordered. EDMS 09:05 MRI Screening Tool - Place on chart, inform RN complete. lbd 13:38 PCR was scanned into [employer] and attached to record. gb 14:55 T-Sheet-- Draft Copy was scanned into [employer] and attached to record. gb 04/04 09:32 Rhythm Strip was scanned into [employer] and attached to record. gb Administered Medications: 04/03 07:59 Drug: NS 0.9% 1000 ml [sodium chloride 0.9 % injection solution] Route: IV; Rate: pml bolus; Site: left antecubital; 09:15 Follow up: IV Status: Completed infusion; IV Intake: 1000ml pml 08:00 Drug: Metoclopramide 10 mg [metoclopramide 5 mg/mL injection solution] Route: IV; Rate: pml 40 mg/hr; Infused Over: 15 mins; Site: left antecubital; 08:00 Drug: diphenhydrAMINE 25 mg [diphenhydramine 50 mg/mL injection solution (0.5 mL)] [facility] Route: IVP; Site: left antecubital; 08:00 Drug: Ondansetron 4 mg [ondansetron HCl 2 mg/mL intravenous solution (2 mL)] Route: pml IVP; Site: left antecubital; 09:09 Drug: morphine 4 mg [morphine 4 mg/mL intravenous cartridge (1 mL)] Route: IVP; Site: pml left antecubital; 09:15 Follow up: Pain 03/31 Adult; Response: Pain is decreased pml 13:07 Follow up: Response: Confirmed pt not driving. pml Signatures: Dispatcher [employer] EDDannielle Pike MD MD sd1 Delma Peñaloza, Editor At Large Unit lbd Darlene Hawthorne, Reg Reg gb Christen Saxena, Reg Reg lg Chelsea Espinoza RN RN jc4 Angie Salmeron RN RN pml McGrath, Marlynn mm15 The chart was reviewed and I authenticate all verbal orders and agree with the evaluation and treatment provided.Corrections: (The following items were deleted from the chart) 07:47 07:40 Allergies: PENICILLINS (Unknown); jc4 jc4 Attachments: 08:46 [facility] Payment Agreement lg 14:55 T-Sheet-- Draft Copy gb Chart Complete MTDD
== END 2016-04-03 13:09 | disposition home or self-care (01) ==
LOC: M ED 07:34
DX: R51 Headache (principal); K21.9 Gastro-esophageal reflux disease without esophagitis; Z79.899 Other long term (current) drug therapy; Z88.0 Allergy status to penicillin
CPT/HCPCS: 36415; 70450; 70544; 70551; 80048; 85025; 96361; 96374; 96375; 99284; J1200; J2405; J2765

== ENCOUNTER 2017-02-23 12:04 | Emergency (ER) | payer BC ==
[~2017-02-23] VITALS: Ht 160 cm; Wt 70.5 kg
[2017-02-23] MEDS ORDERED: MULT1CHW39 PO (12:35)
[2017-02-23] MEDS ORDERED: PRIL20CA9 PO (12:35)
[2017-02-23] MEDS ORDERED: PANTOPRAZOLE 40MG INJ (PROTONIX) (C9113) IV ONE (12:45)
[2017-02-23] MEDS ORDERED: NS 1,000 ML IV ONE (12:45)
[2017-02-23] MEDS ORDERED: ONDANSETRON 4MG/2ML VIAL (J2405) IV PRN (12:45)
[2017-02-23 12:56] LABS: BASO % 0.2 % (0.0-1.0); IMMATURE GRANULOCYTE % 0.4 % (0-0); LYMPH # 0.8 10^3/uL (1.5-4.5); MEAN CORPUSCULAR HEMOGLOBIN 30.1 pg (27.0-33.0); MEAN CORPUSCULAR HGB CONC 33.7 g/dl (32.0-36.5); MEAN CORPUSCULAR VOLUME 89.2 fl (80.0-96.0); MONO # 0.5 10^3/uL (0.0-0.8); MONO % 3.8 % (0.0-5.0); NEUTROPHILS % 89.6 % (36.0-66.0); PLATELET COUNT, AUTOMATED 260 10^3/uL (150-450); RED CELL DISTRIBUTION WIDTH 12.7 % (11.5-14.5); WHITE BLOOD COUNT 13.4 10^3/uL (4.0-10.0)
[2017-02-23 13:06] LABS: INR 0.95
[2017-02-23 13:14] LABS: ALBUMIN 4.1 GM/DL (3.2-5.2); ALKALINE PHOSPHATASE 83 U/L (45-117); ALT/SGPT 36 U/L (12-78); AMYLASE 32 U/L (25-115); ANION GAP 4 MEQ/L (8-16); AST/SGOT 19 U/L (7-37); BILIRUBIN,DIRECT < 0.1 MG/DL (0.0-0.2); BILIRUBIN,TOTAL 0.4 MG/DL (0.2-1.0); BLOOD UREA NITROGEN 15 MG/DL (7-18); CARBON DIOXIDE LEVEL 34 MEQ/L (21-32); CHLORIDE LEVEL 102 MEQ/L (98-107); GLOMERULAR FILTRATION RATE > 60.0 (>56); GLUCOSE, FASTING 142 MG/DL (70-105); POTASSIUM SERUM 3.8 MEQ/L (3.5-5.1); SODIUM LEVEL 140 MEQ/L (136-145); TOTAL PROTEIN 8.2 GM/DL (6.4-8.2)
[2017-02-23] MEDS ORDERED: MORPHINE 4 MG/ML 1ML SYRINGE IV ONE (13:30)
[2017-02-23] MEDS ORDERED: ISOVUE-370 76% 100ML VIAL (Q9967) As Ordered ONE (13:30)
[2017-02-23] MEDS ORDERED: MECLIZINE 25 MG TABLET PO ONE (13:30)
--- NOTE | 2017-02-23 14:58 | REP ---
CT ABDOMEN PELVIS WITH IV CONTRAST: 02/23/2017 CLINICAL HISTORY: Upper abdominal pain. Peptic ulcer disease. TECHNIQUE: A bolus of 100 mL Isovue 370 and scanning through the abdomen pelvis with coronal and sagittal reconstructions. FINDINGS: CT ABDOMEN: No prior study. The lung bases are clear. Heart is not enlarged. There is no pericardial thickening or effusion. No hiatal hernia. I see no hepatosplenomegaly, focal hepatic or splenic lesion, biliary dilatation or ascites. Gallbladder without calcified stone or mass. Adrenal glands are normal. Kidneys show function without obstruction, stone, mass, cyst or perinephric edema. No hydroureter or ureteral stone on either side. The aorta is without aneurysm. No periaortic or retroperitoneal pathologic sized lymphadenopathy. Pancreas unremarkable. Lung window review of all CT slices shows no perforation or abscess. Bone windows show extensive sclerosis at the endplates at L5-S1. There is degenerative disc change with disc space narrowing. The other disc space heights intact in the lumbar spine with degenerative disc changes lower thoracic spine. No acute compression deformity or paraspinal hematoma. Posterior elements otherwise intact. Visualized ribs intact. CT PELVIS: The sacrum, SI joints, iliac bones, hips and pubic rami grossly intact with very minimal degenerative changes in the hips. No destructive lesion or fracture. Bladder shows no wall thickening mass or stone. There are multiple pelvic phleboliths evident. Distal ureters without dilatation or stone. Abdominal and pelvic portion of the colon show no sign of colitis, diverticulitis, stricture or mass. Appendix is seen and normal without appendicolith inflammatory change. The aorta is without aneurysm or dissection. The femoral and iliac arteries are intact. There is no ventral or inguinal hernia nor pathologic inguinal adenopathy. IMPRESSION: 1. Negative CT abdomen and pelvis. There is no ascites, adenopathy, free air or mass. 2. No hiatal hernia abnormality. The gastric wall by CT is normal. 3. The colon, small bowel, appendix and stomach unremarkable. 4. Kidneys, ureters and bladder without stone, mass, cyst or hydro. Signed by Melecio Valerio MD 02/23/2017 08:32 P
[2017-02-23] MEDS ORDERED: SUCR1SS PO (15:07)
[2017-02-23] MEDS ORDERED: MECL-68 PO (15:07)
[2017-02-23] MEDS ORDERED: ZOFR4TAB3 PO (15:07)
[2017-02-23] MEDS ORDERED: PROT1TAB2 PO (15:07)
[2017-02-23 15:15] VITALS: BP 127/68
== END 2017-02-23 15:23 | disposition home or self-care (01) ==
LOC: M ED 12:04
DX: K29.00 Acute gastritis without bleeding (principal); K27.0 Acute peptic ulcer, site unspecified, with hemorrhage; K21.9 Gastro-esophageal reflux disease without esophagitis; R42 Dizziness and giddiness; Z79.899 Other long term (current) drug therapy; Z88.6 Allergy status to analgesic agent; Z88.0 Allergy status to penicillin; Z88.8 Allergy status to other drugs, medicaments and biological substances; Z88.5 Allergy status to narcotic agent
CPT/HCPCS: 74177; 80048; 80076; 81001; 82150; 83690; 85025; 85610; 85730; 86850; 86900; 86901; 96374; 96375; 99284; C9113; J2405; Q9967

== ENCOUNTER → 2017-09-01 | Outpatient (CLI) | payer BC ==
[~2017-09-01] MED LIST: PROHANCE 279.3MG/ML 15ML VIAL (A9576) As Ordered
== END ==
LOC: M RAD 10:54
DX: H90.42 Sensorineural hearing loss, unilateral, left ear, with unrestricted hearing on the contralateral side (principal)
CPT/HCPCS: A9576

== ENCOUNTER → 2018-08-17 | Outpatient (CLI) | payer BC ==
[~2018-08-17] MED LIST changes: +MECL-68 PO; +MULT200T7 PO; +PRIL20CA9 PO; -PROHANCE 279.3MG/ML 15ML VIAL (A9576) As Ordered; +PROHANCE 279.3MG/ML 15ML VIAL (A9576) As Ordered ONE; +PROT1TAB2 PO; +SUCR1SS PO; +ZOFR4TAB14 PO
--- NOTE | 2018-08-17 15:34 | REP ---
MR IACS WITHOUT AND WITH CONTRAST: HISTORY: Cranial nerve neoplasm. CONTRAST: ProHance 14 mL COMPARISON: 09/01/2017 There are no areas of abnormal signal intensity in the brain parenchyma. There is no intraparenchymal hemorrhage, infarct or midline shift. The ventricular system is normal in appearance. There is no extracerebral collection. A 4 mm enhancing mass is present in the right internal auditory canal. This is consistent with an acoustic neuroma that is unchanged in size compared to the previous study. The left internal auditory canal, cochlea, vestibule and semicircular canals are normal in appearance. Mucosal thickening is present in the left mastoid air cells. The right mastoid air cells and visualized sinuses are clear. IMPRESSION: 1. 4 mm right intracanalicular acoustic neuroma, unchanged in size compared to the previous study. 2. There is left mastoid mucosal thickening, unchanged compared to the previous study. Electronically Signed by Severo Alex MD 08/17/2018 03:37 P
== END ==
LOC: M RAD 13:01
PROVIDERS: ATTEND Otolaryngology
DX: D33.3 Benign neoplasm of cranial nerves (principal)
CPT/HCPCS: 70553; A9576

== ENCOUNTER → 2020-07-15 | Outpatient (CLI) | payer BC ==
[~2020-07-15] MED LIST changes: -MECL-68 PO; +MECL1TAB31 PO; -PROHANCE 279.3MG/ML 15ML VIAL (A9576) As Ordered ONE
[2020-07-15 13:33] LABS: BASO % 0.7 % (0.0-1.0); EOS # 0.1 10^3/uL (0.0-0.5); EOS % 1.8 % (0.0-3.0); HEMATOCRIT 45.9 % (42.0-52.0); HEMOGLOBIN 15.4 g/dl (13.5-17.5); LYMPH # 1.5 10^3/uL (1.5-5.0); LYMPH % 25.5 % (24.0-44.0); MEAN CORPUSCULAR HEMOGLOBIN 30.8 pg (27.0-33.0); MEAN CORPUSCULAR HGB CONC 33.6 g/dl (32.0-36.5); MEAN CORPUSCULAR VOLUME 91.8 fl (80.0-96.0); MONO # 0.5 10^3/uL (0.0-0.8); MONO % 8.9 % (2.0-8.0); NEUTROPHILS # 3.8 10^3/uL (1.5-8.5); NEUTROPHILS % 62.8 % (36.0-66.0); PLATELET COUNT, AUTOMATED 257 10^3/uL (150-450)
[2020-07-15 13:49] LABS: HEMOGLOBIN A1c 6.3 %
[2020-07-15 14:22] LABS: ALT/SGPT 38 U/L (12-78); BILIRUBIN,TOTAL 0.6 MG/DL (0.2-1.0); BLOOD UREA NITROGEN 15 MG/DL (7-18); CALCIUM LEVEL 9.5 MG/DL (8.5-10.1); CARBON DIOXIDE LEVEL 30 MEQ/L (21-32); CHLORIDE LEVEL 105 MEQ/L (98-107); CHOLESTEROL LEVEL 227 MG/DL (<200); CREATININE FOR GFR 0.78 MG/DL (0.70-1.30); FREE T4 0.92 NG/DL (0.76-1.46); GLOMERULAR FILTRATION RATE > 60.0 (>56); GLUCOSE, FASTING 118 MG/DL (70-100); HDL CHOLESTEROL 50 MG/DL (>40); LDL CHOLESTEROL 124 MG/DL (<100); NON-HDL-C 177 MG/DL; POTASSIUM SERUM 4.4 MEQ/L (3.5-5.1); SODIUM LEVEL 140 MEQ/L (136-145); THYROID STIMULATING HORMONE 0.986 uIU/ML (0.358-3.740); TOTAL 25(OH) VITAMIN D 24.2 NG/ML (30.0-100.0); TOTAL PROTEIN 7.3 GM/DL (6.4-8.2); TRIGLYCERIDES LEVEL 264 MG/DL (<150)
== END ==
LOC: M WUC 09:56
PROVIDERS: ATTEND Physician Assistant
DX: Z13.29 Encounter for screening for other suspected endocrine disorder (principal); Z13.220 Encounter for screening for lipoid disorders; Z12.5 Encounter for screening for malignant neoplasm of prostate; Z11.1 Encounter for screening for respiratory tuberculosis
CPT/HCPCS: 36415; 80053; 80061; 82306; 83036; 84439; 84443; 85025; 86480; G0103

== ENCOUNTER → 2020-10-22 | Outpatient (CLI) | payer BC ==
[2020-10-22 12:19] LABS: ALBUMIN 3.8 GM/DL (3.2-5.2); ALT/SGPT 38 U/L (12-78); BILIRUBIN,TOTAL 0.6 MG/DL (0.2-1.0); BLOOD UREA NITROGEN 15 MG/DL (7-18); CALCIUM LEVEL 8.7 MG/DL (8.5-10.1); CARBON DIOXIDE LEVEL 30 MEQ/L (21-32); CHLORIDE LEVEL 105 MEQ/L (98-107); CHOLESTEROL LEVEL 205 MG/DL (<200); CHOLESTEROL RISK RATIO 4.361 (<5); CREATININE FOR GFR 0.81 MG/DL (0.70-1.30); GLOMERULAR FILTRATION RATE > 60.0 (>56); GLUCOSE, FASTING 118 MG/DL (70-100); HDL CHOLESTEROL 47 MG/DL (>40); LDL CHOLESTEROL 109 MG/DL (<100); NON-HDL-C 158 MG/DL; SODIUM LEVEL 142 MEQ/L (136-145); TOTAL PROTEIN 7.3 GM/DL (6.4-8.2); TRIGLYCERIDES LEVEL 247 MG/DL (<150)
[2020-10-22 12:24] LABS: TOTAL 25(OH) VITAMIN D 53.8 NG/ML (30.0-100.0)
[2020-10-22 12:35] LABS: HEMOGLOBIN A1c 6.4 %
== END ==
LOC: M WUC 08:06
PROVIDERS: ATTEND Physician Assistant
DX: R73.03 Prediabetes (principal); E78.2 Mixed hyperlipidemia; E55.9 Vitamin D deficiency, unspecified

== ENCOUNTER → 2021-02-06 | Outpatient (CLI) | payer BC ==
[2021-02-06 08:21] LABS: ALBUMIN 3.8 GM/DL (3.2-5.2); ALT/SGPT 41 U/L (12-78); BILIRUBIN,TOTAL 0.8 MG/DL (0.2-1.0); BLOOD UREA NITROGEN 15 MG/DL (7-18); CALCIUM LEVEL 8.9 MG/DL (8.5-10.1); CARBON DIOXIDE LEVEL 32 MEQ/L (21-32); CHLORIDE LEVEL 105 MEQ/L (98-107); GLOMERULAR FILTRATION RATE > 60.0 (>56); GLUCOSE, FASTING 127 MG/DL (70-100); POTASSIUM SERUM 3.9 MEQ/L (3.5-5.1); SODIUM LEVEL 141 MEQ/L (136-145); TOTAL PROTEIN 7.2 GM/DL (6.4-8.2)
[2021-02-06 08:50] LABS: HEMOGLOBIN A1c 6.5 %
[2021-02-06 09:49] LABS: TOTAL 25(OH) VITAMIN D 30.4 NG/ML (30.0-100.0)
== END ==
LOC: M LAB 07:23
PROVIDERS: ATTEND Physician Assistant
DX: R73.01 Impaired fasting glucose (principal)

== ENCOUNTER → 2021-02-12 | Outpatient (CLI) | payer BC ==
--- NOTE | 2021-02-12 15:07 | REP ---
INDICATION: PAIN. COMPARISON: None. TECHNIQUE: Three views of the right shoulder were performed. FINDINGS: The acromioclavicular and glenohumeral relationships are within normal limits. There is no acute fracture or destructive osseous lesion. There is a small calcification lateral to the greater humeral tuberosity IMPRESSION: A small soft tissue calcification as described above possibly secondary to chronic calcific supraspinatus tendinitis. <Electronically signed by Hugh Linder > 02/12/21 [id number]
== END ==
LOC: M WUC 14:11
PROVIDERS: ATTEND Physician Assistant
DX: M75.31 Calcific tendinitis of right shoulder (principal)

== ENCOUNTER → 2021-05-12 | Outpatient (CLI) | payer BC ==
[2021-05-12 09:19] LABS: BASO % 0.5 % (0.0-1.0); EOS # 0.1 10^3/uL (0.0-0.5); EOS % 1.6 % (0.0-3.0); HEMATOCRIT 44.1 % (42.0-52.0); HEMOGLOBIN 14.6 g/dl (13.5-17.5); LYMPH # 1.5 10^3/uL (1.5-5.0); LYMPH % 24.1 % (24.0-44.0); MEAN CORPUSCULAR HEMOGLOBIN 30.4 pg (27.0-33.0); MEAN CORPUSCULAR HGB CONC 33.1 g/dl (32.0-36.5); MEAN CORPUSCULAR VOLUME 91.7 fl (80.0-96.0); MONO # 0.6 10^3/uL (0.0-0.8); MONO % 8.6 % (2.0-8.0); NEUTROPHILS # 4.1 10^3/uL (1.5-8.5); NEUTROPHILS % 64.7 % (36.0-66.0); PLATELET COUNT, AUTOMATED 257 10^3/uL (150-450); RED BLOOD COUNT 4.81 10^6/uL (4.30-6.10); WHITE BLOOD COUNT 6.4 10^3/uL (4.0-10.0)
[2021-05-12 09:40] LABS: HEMOGLOBIN A1c 6.3 %
[2021-05-12 09:49] LABS: ALBUMIN 3.8 GM/DL (3.2-5.2); ALT/SGPT 37 U/L (12-78); BILIRUBIN,TOTAL 0.6 MG/DL (0.2-1.0); BLOOD UREA NITROGEN 12 MG/DL (7-18); CALCIUM LEVEL 8.7 MG/DL (8.5-10.1); CARBON DIOXIDE LEVEL 29 MEQ/L (21-32); CHLORIDE LEVEL 105 MEQ/L (98-107); CREATININE FOR GFR 0.83 MG/DL (0.70-1.30); GLOMERULAR FILTRATION RATE > 60.0 (>56); GLUCOSE, FASTING 113 MG/DL (70-100); POTASSIUM SERUM 4.1 MEQ/L (3.5-5.1); SODIUM LEVEL 140 MEQ/L (136-145); TOTAL PROTEIN 7.5 GM/DL (6.4-8.2)
[2021-05-13 23:07] LABS: PSA TOTAL 0.8 ng/mL (0.0-4.0)
== END ==
LOC: M LAB 08:30
PROVIDERS: ATTEND Physician Assistant
DX: R73.01 Impaired fasting glucose (principal)

== ENCOUNTER → 2021-10-04 | Outpatient (CLI) | payer BC ==
[2021-10-04 09:51] LABS: BASO % 0.4 % (0.0-1.0); EOS # 0.1 10^3/uL (0.0-0.5); HEMATOCRIT 43.7 % (42.0-52.0); HEMOGLOBIN 14.4 g/dl (13.5-17.5); LYMPH # 1.5 10^3/uL (1.5-5.0); LYMPH % 21.7 % (24.0-44.0); MONO # 0.6 10^3/uL (0.0-0.8); MONO % 8.6 % (2.0-8.0); NEUTROPHILS # 4.6 10^3/uL (1.5-8.5); NEUTROPHILS % 66.9 % (36.0-66.0); PLATELET COUNT, AUTOMATED 237 10^3/uL (150-450); WHITE BLOOD COUNT 6.8 10^3/uL (4.0-10.0)
[2021-10-04 10:13] LABS: HEMOGLOBIN A1c 6.1 %
[2021-10-04 10:16] LABS: ALBUMIN 3.8 GM/DL (3.2-5.2); ALT/SGPT 36 U/L (12-78); BILIRUBIN,TOTAL 0.6 MG/DL (0.2-1.0); BLOOD UREA NITROGEN 13 MG/DL (7-18); CALCIUM LEVEL 8.6 MG/DL (8.5-10.1); CARBON DIOXIDE LEVEL 31 MEQ/L (21-32); CHLORIDE LEVEL 107 MEQ/L (98-107); CREATININE FOR GFR 0.78 MG/DL (0.70-1.30); GLOMERULAR FILTRATION RATE > 60.0 (>56); GLUCOSE, FASTING 101 MG/DL (70-100); POTASSIUM SERUM 4.1 MEQ/L (3.5-5.1); SODIUM LEVEL 142 MEQ/L (136-145); TOTAL PROTEIN 7.3 GM/DL (6.4-8.2)
== END ==
LOC: M LAB 08:41
PROVIDERS: ATTEND Physician Assistant
DX: R73.01 Impaired fasting glucose (principal)

== ENCOUNTER → 2022-04-01 | Outpatient (CLI) | payer BC ==
[2022-04-01 07:46] LABS: BASO % 0.6 % (0.0-1.0); EOS # 0.1 10^3/uL (0.0-0.5); EOS % 1.4 % (0.0-3.0); HEMATOCRIT 44.8 % (42.0-52.0); HEMOGLOBIN 14.7 g/dl (13.5-17.5); LYMPH # 1.3 10^3/uL (1.5-5.0); LYMPH % 19.4 % (24.0-44.0); MEAN CORPUSCULAR HEMOGLOBIN 29.9 pg (27.0-33.0); MEAN CORPUSCULAR HGB CONC 32.8 g/dl (32.0-36.5); MEAN CORPUSCULAR VOLUME 91.2 fl (80.0-96.0); MONO # 0.6 10^3/uL (0.0-0.8); MONO % 9.2 % (2.0-8.0); NEUTROPHILS # 4.5 10^3/uL (1.5-8.5); NEUTROPHILS % 69.1 % (36.0-66.0); PLATELET COUNT, AUTOMATED 251 10^3/uL (150-450); RED BLOOD COUNT 4.91 10^6/uL (4.30-6.10); WHITE BLOOD COUNT 6.6 10^3/uL (4.0-10.0)
[2022-04-01 08:09] LABS: CREATININE, URINE 175.4 MG/DL
[2022-04-01 08:10] LABS: MAU/CREAT RATIO 2.2 MCG/MG (0.0-30.0)
[2022-04-01 08:30] LABS: ALKALINE PHOSPHATASE 86 U/L (46-116); ALT/SGPT 29 U/L (7.0-40); AST/SGOT 23 U/L (<34); BILIRUBIN,TOTAL 0.7 MG/DL (0.3-1.2); BLOOD UREA NITROGEN 16 MG/DL (9-23); CALCIUM LEVEL 8.9 MG/DL (8.5-10.1); CARBON DIOXIDE LEVEL 30 MMOL/L (20-31); CHLORIDE LEVEL 103 MMOL/L (98-107); CHOLESTEROL LEVEL 208 MG/DL (<200); CHOLESTEROL RISK RATIO 4.05 (<5); GLOMERULAR FILTRATION RATE > 60.0 (>56); GLUCOSE, FASTING 112 MG/DL (60-100); HDL CHOLESTEROL 51.3 MG/DL (>40); LDL CHOLESTEROL 119.5 MG/DL (<100); NON-HDL-C 157 MG/DL; POTASSIUM SERUM 4.2 MMOL/L (3.5-5.1); SODIUM LEVEL 141 MMOL/L (136-145); TOTAL PROTEIN 7.4 G/DL (5.7-8.2); TRIGLYCERIDES LEVEL 186 MG/DL (<150)
== END ==
LOC: M LAB 06:58
PROVIDERS: ATTEND Physician Assistant
DX: R73.01 Impaired fasting glucose (principal)
CPT/HCPCS: 36415; 80053; 80061; 82043; 83036; 85025; G0103

== ENCOUNTER 2022-06-26 07:00 | Day surgery (SDC) | payer BC ==
[~2022-06-26] VITALS: Ht 160 cm; Wt 72.6 kg
[~2022-06-26 07:00] MED LIST changes: +CLAR10CA3 PO; +NS 1,000 ML IV ONE; +PRIL20TA2 PO; +TRUL10IN SC; +VITA100093 PO; +VITA500C24 PO; +fentaNYL 100 MCG/2 ML INJECTION As Ordered ONE; +propofoL 500 MG/50 ML VIAL As Ordered ONE
[2022-06-26] MEDS ORDERED: LIDOCAINE 2% 100MG/5ML SDV (FOR ANES.) As Ordered ONE (07:02)
[2022-06-26] MEDS ORDERED: SUCCINYLCHOLINE 100MG/5ML SYRINGE As Ordered ONE (09:01)
[2022-06-26 09:50] VITALS: BP 149/80
== END 2022-06-26 10:00 | disposition home or self-care (01) ==
LOC: M OPP 07:00
PROVIDERS: ATTEND Surgery
DX: Z12.11 Encounter for screening for malignant neoplasm of colon (principal); Z86.010 Personal history of colon polyps; K31.7 Polyp of stomach and duodenum; K21.9 Gastro-esophageal reflux disease without esophagitis; K44.9 Diaphragmatic hernia without obstruction or gangrene; Z79.4 Long term (current) use of insulin; Z88.0 Allergy status to penicillin; Z79.899 Other long term (current) drug therapy; Z80.42 Family history of malignant neoplasm of prostate; Z80.8 Family history of malignant neoplasm of other organs or systems
CPT/HCPCS: 43251; 45378; 88305; J0330; J3010

== ENCOUNTER → 2023-04-17 | Outpatient (CLI) | payer BC ==
[~2023-04-17] MED LIST changes: +MECL-209 PO; -MECL1TAB31 PO; -NS 1,000 ML IV ONE; -fentaNYL 100 MCG/2 ML INJECTION As Ordered ONE; -propofoL 500 MG/50 ML VIAL As Ordered ONE
[2023-04-17 09:52] LABS: BASO % 0.6 % (0.0-1.0); EOS # 0.1 10^3/uL (0.0-0.5); EOS % 2.1 % (0.0-3.0); HEMATOCRIT 44.6 % (42.0-52.0); LYMPH # 1.4 10^3/uL (1.5-5.0); LYMPH % 21.2 % (24.0-44.0); MEAN CORPUSCULAR HEMOGLOBIN 30.7 pg (27.0-33.0); MEAN CORPUSCULAR HGB CONC 33.6 g/dl (32.0-36.5); MEAN CORPUSCULAR VOLUME 91.4 fl (80.0-96.0); MONO # 0.6 10^3/uL (0.0-0.8); MONO % 9.2 % (2.0-8.0); NEUTROPHILS # 4.5 10^3/uL (1.5-8.5); NEUTROPHILS % 66.6 % (36.0-66.0); PLATELET COUNT, AUTOMATED 243 10^3/uL (150-450); RED BLOOD COUNT 4.88 10^6/uL (4.30-6.10); WHITE BLOOD COUNT 6.7 10^3/uL (4.0-10.0)
[2023-04-17 10:17] LABS: HEMOGLOBIN A1c 5.9 % (4.0-6.0)
[2023-04-17 10:24] LABS: ALBUMIN 3.9 G/DL (3.2-5.2); ALKALINE PHOSPHATASE 80 U/L (46-116); ALT/SGPT 29 U/L (7.0-40); AST/SGOT 19 U/L (<34); BILIRUBIN,TOTAL 0.9 MG/DL (0.3-1.2); BLOOD UREA NITROGEN 16 MG/DL (9-23); CARBON DIOXIDE LEVEL 29 MMOL/L (20-31); CHLORIDE LEVEL 106 MMOL/L (98-107); CHOLESTEROL LEVEL 199 MG/DL (<200); CHOLESTEROL RISK RATIO 4.06 (<5); CREATININE FOR GFR 0.76 MG/DL (0.70-1.30); GLOMERULAR FILTRATION RATE > 60.0 (>56); GLUCOSE, FASTING 108 MG/DL (60-100); HDL CHOLESTEROL 48.9 MG/DL (>40); LDL CHOLESTEROL 109.1 MG/DL (<100); NON-HDL-C 150.1 MG/DL; POTASSIUM SERUM 3.9 MMOL/L (3.5-5.1); SODIUM LEVEL 137 MMOL/L (136-145); TOTAL PROTEIN 7.3 G/DL (5.7-8.2); TRIGLYCERIDES LEVEL 205 MG/DL (<150)
[2023-04-17 10:31] LABS: PSA SCREENING 0.87 NG/ML (< 4.00)
[2023-04-17 10:35] LABS: FREE T4 1.07 NG/DL (0.89-1.76); THYROID STIMULATING HORMONE 1.003 uIU/ML (0.55-4.78)
[2023-04-17 11:01] LABS: TOTAL 25(OH) VITAMIN D 36.6 NG/ML (20.0-100.0)
== END ==
LOC: M LAB 09:11
PROVIDERS: ATTEND Physician Assistant
DX: R73.01 Impaired fasting glucose (principal); E55.9 Vitamin D deficiency, unspecified; Z79.899 Other long term (current) drug therapy
CPT/HCPCS: 36415; 80053; 80061; 82306; 83036; 84439; 84443; 85025; G0103

== ENCOUNTER → 2023-10-16 | Outpatient (CLI) | payer BC, SELFPAY ==
[2023-10-16 09:08] LABS: CREATININE, URINE 107.5 MG/DL; MALB URINE SIEMENS < 3.0 MG/L; MAU/CREAT RATIO 2.7 MCG/MG (0.0-30.0)
[2023-10-16 09:09] LABS: ALBUMIN 3.8 G/DL (3.2-5.2); ALKALINE PHOSPHATASE 88 U/L (46-116); ALT/SGPT 38 U/L (7.0-40); AST/SGOT 24 U/L (<34); BILIRUBIN,TOTAL 0.8 MG/DL (0.3-1.2); BLOOD UREA NITROGEN 14 MG/DL (9-23); CALCIUM LEVEL 8.8 MG/DL (8.3-10.6); CARBON DIOXIDE LEVEL 32 MMOL/L (20-31); CHLORIDE LEVEL 103 MMOL/L (98-107); GLOMERULAR FILTRATION RATE > 60.0 (>49); GLUCOSE, FASTING 97 MG/DL (74-106); SODIUM LEVEL 139 MMOL/L (136-145); TOTAL PROTEIN 6.9 G/DL (5.7-8.2)
== END ==
LOC: M LAB 08:08
PROVIDERS: ATTEND Physician Assistant
DX: E11.9 Type 2 diabetes mellitus without complications (principal)

== ENCOUNTER 2024-02-16 10:13 | Day surgery (SDC) | payer BC ==
[~2024-02-16] VITALS: Ht 160 cm; Wt 73.7 kg
[~2024-02-16 10:13] MED LIST changes: -MULT200T7 PO; +MULT200T9 PO
[2024-02-16] MEDS ORDERED: LIDOCAINE 2% 100MG/5ML SDV (FOR ANES.) As Ordered ONE (10:21)
[2024-02-16] MEDS ORDERED: propofoL 200 MG/20 ML VIAL As Ordered ONE (10:21)
[2024-02-16] MEDS ORDERED: dexmedeTOMIDine (4MCG/ML)200MCG/50ML BTL (PRECEDEX) As Ordered ONE (10:21)
[2024-02-16] MEDS ORDERED: fentaNYL 100 MCG/2 ML INJECTION As Ordered ONE (10:22)
[2024-02-16] MEDS ORDERED: ONDANSETRON 4MG 2ML VIAL As Ordered ONE (11:03)
[2024-02-16 11:58] VITALS: TEMP 97.3
[2024-02-16] MEDS ORDERED: METOCLOPRAMIDE INJ 10MG/2ML VIAL As Ordered ONE (12:29)
[2024-02-16] MEDS ORDERED: NALOXONE INJ 0.4MG/1ML VIAL As Ordered ONE (13:15)
[2024-02-16 13:40] VITALS: BP 138/85; O2SAT 97
== END 2024-02-16 13:52 | disposition home or self-care (01) ==
LOC: M OPP 10:13
PROVIDERS: ATTEND Surgery
DX: K31.7 Polyp of stomach and duodenum (principal); K44.9 Diaphragmatic hernia without obstruction or gangrene; K30 Functional dyspepsia; K21.9 Gastro-esophageal reflux disease without esophagitis; R73.03 Prediabetes; Z79.85 Long-term (current) use of injectable non-insulin antidiabetic drugs; Z79.899 Other long term (current) drug therapy; Z88.0 Allergy status to penicillin; Z86.79 Personal history of other diseases of the circulatory system
CPT/HCPCS: 43251; 88305; J2310; J2405; J2765; J3010

== ENCOUNTER → 2024-04-19 | Outpatient (CLI) | payer BC ==
[2024-04-19 09:45] LABS: BASO % 0.6 % (0.0-1.0); EOS # 0.1 10^3/uL (0.0-0.5); EOS % 1.2 % (0.0-3.0); HEMATOCRIT 41.5 % (42.0-52.0); HEMOGLOBIN 14.2 g/dl (13.5-17.5); LYMPH # 1.6 10^3/uL (1.5-5.0); LYMPH % 24.8 % (24.0-44.0); MEAN CORPUSCULAR HEMOGLOBIN 31.3 pg (27.0-33.0); MEAN CORPUSCULAR HGB CONC 34.2 g/dl (32.0-36.5); MEAN CORPUSCULAR VOLUME 91.4 fl (80.0-96.0); MONO # 0.7 10^3/uL (0.0-0.8); MONO % 10.3 % (2.0-8.0); NEUTROPHILS # 4.2 10^3/uL (1.5-8.5); NEUTROPHILS % 62.8 % (36.0-66.0); PLATELET COUNT, AUTOMATED 281 10^3/uL (150-450); RED BLOOD COUNT 4.54 10^6/uL (4.30-6.10); WHITE BLOOD COUNT 6.6 10^3/uL (4.0-10.0)
[2024-04-19 10:11] LABS: ALBUMIN 3.7 G/DL (3.2-5.2); ALKALINE PHOSPHATASE 81 U/L (40-129); ALT/SGPT 38 U/L (7.0-40); AST/SGOT 23 U/L (<34); BILIRUBIN,TOTAL 0.9 MG/DL (0.3-1.2); BLOOD UREA NITROGEN 15 MG/DL (9-23); CALCIUM LEVEL 8.6 MG/DL (8.3-10.6); CARBON DIOXIDE LEVEL 31 MMOL/L (20-31); CHLORIDE LEVEL 102 MMOL/L (98-107); CHOLESTEROL LEVEL 199 MG/DL (<200); CHOLESTEROL RISK RATIO 4.25 (<5); CREATININE FOR GFR 0.84 MG/DL (0.70-1.30); GLOMERULAR FILTRATION RATE > 60.0 (>49); GLUCOSE, FASTING 101 MG/DL (74-106); HDL CHOLESTEROL 46.8 MG/DL (>40); NON-HDL-C 152.2 MG/DL; POTASSIUM SERUM 4.7 MMOL/L (3.5-5.1); PSA SCREENING 0.97 NG/ML (< 4.00); SODIUM LEVEL 143 MMOL/L (136-145); TRIGLYCERIDES LEVEL 231 MG/DL (<150)
[2024-04-19 10:14] LABS: THYROID STIMULATING HORMONE 1.111 uIU/ML (0.55-4.78); TOTAL 25(OH) VITAMIN D 35.9 NG/ML (20.0-100.0)
[2024-04-19 10:15] LABS: FREE T4 1.17 NG/DL (0.89-1.76)
== END ==
LOC: M LAB 08:39
PROVIDERS: ATTEND Physician Assistant
DX: E11.9 Type 2 diabetes mellitus without complications (principal); E55.9 Vitamin D deficiency, unspecified; Z79.899 Other long term (current) drug therapy
CPT/HCPCS: 36415; 80053; 80061; 82306; 83036; 84439; 84443; 85025; G0103

== ENCOUNTER → 2024-10-17 | Outpatient (CLI) | payer BC ==
[2024-10-17 07:58] LABS: BASO # 0.0 10^3/uL (0.0-0.2); BASO % 0.6 % (0.0-1.0); EOS # 0.1 10^3/uL (0.0-0.5); EOS % 2.0 % (0.0-3.0); LYMPH # 1.3 10^3/uL (1.5-5.0); LYMPH % 19.8 % (24.0-44.0); MONO # 0.7 10^3/uL (0.0-0.8); MONO % 10.0 % (2.0-8.0); NEUTROPHILS # 4.5 10^3/uL (1.5-8.5); NEUTROPHILS % 67.1 % (36.0-66.0); PLATELET COUNT, AUTOMATED 211 10^3/uL (150-450)
[2024-10-17 08:26] LABS: CREATININE, URINE 180.6 MG/DL; MALB URINE SIEMENS 5.0 MG/L; MAU/CREAT RATIO 2.7 MCG/MG (0.0-30.0)
[2024-10-17 08:27] LABS: ALT/SGPT 40 U/L (7.0-40); AST/SGOT 27 U/L (<34); CALCIUM LEVEL 8.3 MG/DL (8.3-10.6); CARBON DIOXIDE LEVEL 31 MMOL/L (20-31); CHLORIDE LEVEL 103 MMOL/L (98-107); CREATININE FOR GFR 0.81 MG/DL (0.70-1.30); GLOMERULAR FILTRATION RATE > 90.0 (>49); POTASSIUM SERUM 4.2 MMOL/L (3.5-5.1); SODIUM LEVEL 144 MMOL/L (136-145)
[2024-10-17 08:28] LABS: TOTAL 25(OH) VITAMIN D 47.3 NG/ML (20.0-100.0)
[2024-10-17 08:53] LABS: ESTIMATED AVERAGE GLUCOSE 128.0 MG/DL (60-110)
== END ==
LOC: M LAB 07:12
PROVIDERS: ATTEND Physician Assistant
DX: E11.9 Type 2 diabetes mellitus without complications (principal)